=== PATIENT | male | born 1960 | race Caucasian/White ===

== ENCOUNTER 2016-07-02 16:28 | Emergency (ER) | payer OTHER ==
--- NOTE | ~2016-07-02 | CR181 ---
[facility] A Service of [facility] & [facility] RADIOLOGY TEXT RESULTS PATIENT: JUAN CARLOS ABRAHAM LOCATION: [place] : 60 UNIT #: [id number] AGE: [address]: AUSTIN DELVALLE SEX: M ORDER DR: [id number] [facility] [address] [address] [id number] E MR#: [id number] Acc #: [id number] NAME: JUAN CARLOS ABRAHAM : 1960 SEX: M STUDY DATE/TIME: 07/02/2016 16:06 UNIT: [facility] ROOM: STUDY DESCRIPTION: CR Lumbar Spine 2 or 3 Views Attending Physician: Austin Delvalle Aprn Ordering Physician: Ed Stanley Garduno M.D. Primary Care Physician: Primary Care Physician No MEDICAL IMAGING REPORT This report is preliminary unless electronic signature is present EXAM Lumbar spine series 3 views, 07/02/2016 COMPARISON Prior study dated 07/29/2008 CLINICAL HISTORY Pain after fall 07/02. FINDINGS Normal alignment. Mild discogenic change but no fracture or acute abnormality. No change since 07/29/2008. Dictated by... Jaden Lacy M.D. THIS IS AN ELECTRONICALLY VERIFIED REPORT Jaden Lacy M.D. at 07/05/2016 3:48 PM TEV/sancho TD: 07/03/2016 01:20 JOB #: [id number] MEDICAL IMAGING REPORT COPY
--- NOTE | ~2016-07-02 | CT71 ---
[facility] A Service [facility] RADIOLOGY TEXT RESULTS PATIENT: JUAN CARLOS ABRAHAM LOCATION: [facility] : 60 UNIT #: [id number] AGE: [address]: AUSTIN DELVALLE SEX: M ORDER DR: [id number] [facility] [address] [place], [place] [address] [id number] E MR#: [id number] Acc #: [id number] NAME: JUAN CARLOS ABRAHAM : 1960 SEX: M STUDY DATE/TIME: 07/02/2016 15:43 UNIT: [facility] ROOM: STUDY DESCRIPTION: CT Head Wo Contrast Attending Physician: Austin Delvalle Aprn Ordering Physician: Steffanie Sierra M.D. Primary Care Physician: No Primary Care Physician MEDICAL IMAGING REPORT This report is preliminary unless electronic signature is present EXAM CT head without contrast, 07/02/2016 HISTORY Dizziness and headache and pain after fall last night. TECHNIQUE Axial noncontrast images were obtained from the skull base to the vertex. This CT exam was performed with one or more of the following radiation dose reduction techniques: Automatic exposure control, adjustment of mA and/or kV according to patient size, and iterative reconstruction. FINDINGS Ventricular size and configuration are normal. There is no evidence of acute infarct or hemorrhage. There are no extraaxial fluid collections. No mass lesion or mass effect is seen. There are no skull fractures. IMPRESSION Normal noncontrast head CT. Dictated by... Jaden Lacy M.D. THIS IS AN ELECTRONICALLY VERIFIED REPORT Jaden Lacy M.D. at 07/05/2016 3:47 PM TEV/psc TD: 07/02/2016 23:23 JOB #: [id number] MEDICAL IMAGING REPORT [facility] A Service [facility] RADIOLOGY TEXT RESULTS PATIENT: JUAN CARLOS ABRAHAM LOCATION: [facility] : 60 UNIT #: [id number] AGE: [address]: AUSTIN DELVALLE SEX: M ORDER DR: COPY
--- NOTE | ~2016-07-02 | CR229 ---
[facility] A Service of [facility] & [facility] RADIOLOGY TEXT RESULTS PATIENT: JUAN CARLOS ABRAHAM LOCATION: [facility] : 60 UNIT #: [id number] AGE: [address]: AUSTIN DELVALLE SEX: M ORDER DR: [id number] [facility] [address] [place], [place] [address] [id number] E MR#: [id number] Acc #: [id number] NAME: JUAN CARLOS ABRAHAM : 1960 SEX: M STUDY DATE/TIME: 07/02/2016 16:05 UNIT: [facility] ROOM: STUDY DESCRIPTION: CR Shoulder Min 2 View Lt Attending Physician: Austin Delvalle Aprn Ordering Physician: Ed Stanley Garduno M.D. Primary Care Physician: Primary Care Physician No MEDICAL IMAGING REPORT This report is preliminary unless electronic signature is present EXAM Left shoulder 3 views, 07/02/2016 HISTORY Left arm pain and numbness after fall today. FINDINGS There is some degenerative change at the greater tuberosity, but the exam is otherwise unremarkable. There is no fracture or dislocation. Dictated by... Jaden Lacy M.D. THIS IS AN ELECTRONICALLY VERIFIED REPORT Jaden Lacy M.D. at 07/05/2016 3:48 PM TEV/sancho TD: 07/03/2016 00:56 JOB #: [id number] MEDICAL IMAGING REPORT COPY
[2016-07-02 15:33] LABS: URINE SOURCE CLEAN CATCH
[2016-07-02 15:42] LABS: URINE APPEARANCE CLEAR; URINE BILIRUBIN NEG (NEG); URINE BLOOD NEG (NEG); URINE COLOR YELLOW; URINE GLUCOSE NEG (NEG); URINE KETONE NEG (NEG); URINE LEUKOCYTE ESTERASE NEG (NEG); URINE NITRATE NEG (NEG); URINE PH 7.5 (5-8); URINE PROTEIN TRACE (NEG); URINE SPECIFIC GRAVITY 1.014 (1.003-1.035); URINE UROBILINOGEN 0.2 MG/DL (NEG)
[2016-07-02 15:48] LABS: CULTURE INDICATED? NO
[~2016-07-02 16:28] MED LIST: VICODIN 5/500 T1 TAB PO
== END 2016-07-02 16:59 | disposition home or self-care (01) ==
LOC: CFTX 16:28
PROVIDERS: Nurse Practitioner Family
DX: S46.912A Strain of unspecified muscle, fascia and tendon at shoulder and upper arm level, left arm, initial encounter (principal); S39.012A Strain of muscle, fascia and tendon of lower back, initial encounter; I10 Essential (primary) hypertension; F17.210 Nicotine dependence, cigarettes, uncomplicated; Z88.5 Allergy status to narcotic agent; W22.8XXA Striking against or struck by other objects, initial encounter; Y92.89 Other specified places as the place of occurrence of the external cause
CPT/HCPCS: 70450; 72100; 73030; 81003; 96372; 99284; J1885

== ENCOUNTER 2016-07-17 18:46 | Emergency (ER) | payer OTHER ==
--- NOTE | ~2016-07-17 | CT4 ---
[facility] A Service of [facility] RADIOLOGY TEXT RESULTS PATIENT: JUAN CARLOS ABRAHAM LOCATION: [facility] : 60 UNIT #: [id number] AGE: [address]: Barber Weston MD SEX: M ORDER DR: [id number] [facility] [address] [place], [place] [address] [id number] E MR#: [id number] Acc #: [id number] NAME: JUAN CARLOS ABRAHAM : 1960 SEX: M STUDY DATE/TIME: 07/17/2016 19:20 UNIT: [facility] ROOM: STUDY DESCRIPTION: CT Abd and Pelv Wo Cont Attending Physician: Barber Weston M.D. Ordering Physician: Barber Weston M.D. Primary Care Physician: Primary Care Physician No MEDICAL IMAGING REPORT This report is preliminary unless electronic signature is present EXAM CT abdomen and pelvis without contrast HISTORY Hematuria and low back pain and dysuria for [address] abdomen and pelvis was performed without contrast. This CT exam was performed with one or more of the following radiation dose reduction techniques: Automatic exposure control, adjustment of mA and/or kV according to patient size, and iterative reconstruction. CT ABDOMEN: 2 mm nonobstructing stone in the upper pole of the left kidney. No additional renal calculi. No hydronephrosis. Multiple probable small bilateral renal cortical cysts, similar to prior CTs. The liver, gallbladder, spleen, pancreas, and adrenal glands are normal. Normal caliber abdominal aorta. CT PELVIS: Normal appendix. No bowel dilatation. No ascites or inflammatory stranding. The urinary bladder and prostate gland are unremarkable. IMPRESSION 1. No acute findings in the abdomen or pelvis. 2. No urinary obstruction. 3. 2 mm nonobstructing stone in the upper pole of the left kidney. 4. Normal appendix. 5. Probable multiple small bilateral renal cortical cysts are similar to prior CTs. Dictated by... Duran Calle M.D. [facility] A Service of [facility] RADIOLOGY TEXT RESULTS PATIENT: JUAN CARLOS ABRAHAM LOCATION: [facility] : 60 UNIT #: [id number] AGE: [address]: Barber Weston MD SEX: M ORDER DR: THIS IS AN ELECTRONICALLY VERIFIED REPORT Duran Calle M.D. at 07/18/2016 2:41 PM DFL/psc TD: 07/18/2016 01:55 JOB #: [id number] MEDICAL IMAGING REPORT Page 1 of 1 COPY
[2016-07-17 17:38] LABS: URINE SOURCE CLEAN CATCH
[2016-07-17 18:00] LABS: BASOPHIL# 0.1 X10e3 (0-0.3); BASOPHIL% 0.7 % (0-2.5); EOSINOPHIL# 0.2 X10e3 (0-0.7); EOSINOPHIL% 1.9 % (0.0-7.0); HEMATOCRIT 47.1 % (38.0-50.0); HEMOGLOBIN 15.5 gm/dL (13.0-16.0); LYMPHOCYTE# 2.7 X10e3 (1.0-3.5); LYMPHOCYTE% 24.1 % (17.0-45.0); MEAN CELL VOLUME 86.1 FL (83-96); MEAN CORPUSCULAR HEMOGLOBIN 28.3 PG (28-34); MEAN CORPUSCULAR HGB CONC 32.9 g/dL (30-36); MEAN PLATELET VOLUME 10.8 FL (6.5-11.5); MONOCYTE# 0.7 X10e3 (0-1.0); MONOCYTE% 6.2 % (3.0-12.0); NEUTROPHIL# 7.5 X10e3 (1.5-7.1); NEUTROPHIL% 67.1 % (40-75); PLATELET COUNT 238 X10e3 (140-420); RED BLOOD COUNT 5.47 X10e (3.90-5.60); RED CELL DISTRIBUTION WIDTH 14.1 % (11.0-15.5); WHITE BLOOD COUNT 11.2 X10e3 (4.0-10.5)
[2016-07-17 18:04] LABS: DIFF IND NO
[2016-07-17 18:24] LABS: ALKALINE PHOSPHATASE 71 U/L (32-92); ALT (SGPT) 13 U/L (10-40); AST (SGOT) 23 U/L (10-42); BILIRUBIN,TOTAL <0.1 mg/dL (0.2-2.0); BLOOD UREA NITROGEN 16 mg/dL (9-23); BUN/CREATININE RATIO 13.33; CALCIUM SERUM 9.2 mg/dL (8.4-10.2); CARBON DIOXIDE 24 mmol/L (22-31); CHLORIDE 109 mmol/L (100-111); CREATININE SERUM 1.2 mg/dL (0.6-1.4); GLOM FILT RATE Estimated 67.7 mL/min (>60); GLUCOSE FASTING 107 mg/dL (70-110); POTASSIUM 3.6 mmol/L (3.5-5.1); PROTEIN TOTAL SERUM 7.6 g/dL (6.0-8.3); SODIUM 142 mmol/L (135-145)
[2016-07-17 18:33] LABS: URINE APPEARANCE CLEAR; URINE BILIRUBIN NEG (NEG); URINE BLOOD NEG (NEG); URINE COLOR YELLOW; URINE GLUCOSE NEG (NEG); URINE KETONE NEG (NEG); URINE LEUKOCYTE ESTERASE NEG (NEG); URINE NITRATE NEG (NEG); URINE PH 6.5 (5-8); URINE PROTEIN 1+ (NEG); URINE SPECIFIC GRAVITY 1.019 (1.003-1.035); URINE UROBILINOGEN 0.2 MG/DL (NEG)
[2016-07-17 18:37] LABS: CULTURE INDICATED? YES; U HYALINE CASTS AUWI 0-2 /[LPF]; URINE BACTERIA AUWI NEG (NEGATIVE); URINE SQUAMOUS EPITHELIAL CELL OCC /[HPF]
== END 2016-07-17 20:35 | disposition home or self-care (01) ==
LOC: CED 18:46
DX: M54.5 Low back pain (principal); I10 Essential (primary) hypertension; G89.29 Other chronic pain; Z88.8 Allergy status to other drugs, medicaments and biological substances
CPT/HCPCS: 36415; 74176; 80053; 81003; 85025; 87086; 96372; 99284; J1885

== ENCOUNTER 2016-12-04 11:41 | Emergency (ER) | payer OTHER ==
[~2016-12-04] VITALS: Ht 180.3 cm; Wt 88.5 kg
--- NOTE | ~2016-12-04 | EKG ---
PATIENT: JUAN CARLOS ABRAHAM UNIT #: [id number] Ventricular Rate: 62 BPM Atrial Rate: 62 BPM P-R Interval: 160 ms QRS Duration: 110 ms Q-T Interval: 498 ms QTC Calculation(Bezet): 505 ms P [place]: 36 degrees Calculated R [place]: -53 degrees Calculated T [place]: -34 degrees Diagnosis Line: Sinus rhythm with frequent Premature ventricular Diagnosis Line: complexes in a pattern of bigeminy Diagnosis Line: Left anterior fascicular block Diagnosis Line: Minimal voltage criteria for LVH, may be normal Diagnosis Line: variant Diagnosis Line: Non-specific intra-ventricular conduction delay Diagnosis Line: T wave abnormality, consider anterolateral Diagnosis Line: ischemia Diagnosis Line: Prolonged QT Diagnosis Line: Abnormal ECG Diagnosis Line: No previous ECGs available Diagnosis Line: Confirmed by REGINALD SALEEM MD ([id number]) on Diagnosis Line: 12/04/2016 3:34:00 PM INTERPRETING MD: ALEJO
--- NOTE | ~2016-12-04 | CT52 ---
[facility] A Service of [facility] RADIOLOGY TEXT RESULTS PATIENT: JUAN CARLOS ABRAHAM LOCATION: [facility] : 60 UNIT #: [id number] AGE: [address]: Kemar Guy MD SEX: M ORDER DR: [id number] [address] [address] [id number] E MR#: [id number] Acc #: [id number] NAME: JUAN CARLOS ABRAHAM : 1960 SEX: M STUDY DATE/TIME: 12/04/2016 13:43 UNIT: [facility] ROOM: STUDY DESCRIPTION: CT Cervical Spine Wo Cont Attending Physician: Kemar Guy M.D. Ordering Physician: Kemar Guy M.D. Primary Care Physician: No Primary Care Physician MEDICAL IMAGING REPORT This report is preliminary unless electronic signature is present EXAM Cervical spine CT, no contrast, 12/04/2016. PROCEDURE Axial unenhanced cervical spine CT with multiplanar reformats. This CT exam was performed with one or more of the following radiation dose reduction techniques: automatic exposure control, adjustment of mA and/or kV according to patient size, and iterative reconstruction. COMPARISON None. HISTORY Head and neck pain since fall last night. FINDINGS There is a loss of lordosis, but alignment is, otherwise, normal. There is some discogenic and facet arthropathy but no fracture or bone erosion or destruction is seen. IMPRESSION There is some cervical degenerative changes but there is no fracture or other acute abnormality. Dictated by... Jaden Lacy M.D. THIS IS AN ELECTRONICALLY VERIFIED REPORT Jaden Lacy M.D. at 12/07/2016 4:51 PM TEV/jt [facility] A Service [facility] RADIOLOGY TEXT RESULTS PATIENT: JUAN CARLOS ABRAHAM LOCATION: [facility] : 60 UNIT #: [id number] AGE: [address]: Kemar Guy MD SEX: M ORDER DR: TD: 12/04/2016 17:57 JOB #: [id number] MEDICAL IMAGING REPORT Page 1 of 1 COPY
--- NOTE | ~2016-12-04 | CT71 ---
[facility] A Service of [facility] RADIOLOGY TEXT RESULTS PATIENT: JUAN CARLOS ABRAHAM LOCATION: [facility] : 60 UNIT #: [id number] AGE: [address]: Kemar Guy MD SEX: M ORDER DR: [id number] [facility] [address] [place], [place] [address] [id number] E MR#: [id number] Acc #: [id number] NAME: JUAN CARLOS ABRAHAM : 1960 SEX: M STUDY DATE/TIME: 12/04/2016 13:41 UNIT: [facility] ROOM: STUDY DESCRIPTION: CT Head Wo Contrast Attending Physician: Kemar Guy M.D. Ordering Physician: Kemar Guy M.D. Primary Care Physician: No Primary Care Physician MEDICAL IMAGING REPORT This report is preliminary unless electronic signature is present EXAM Head CT without contrast. HISTORY Patient fell last night. Head injury. Headache. TECHNIQUE Axial images were obtained without contrast. This CT exam was performed with one or more of the following radiation dose reduction techniques: automatic exposure control, adjustment of mA and/or kV according to patient size, and iterative reconstruction. FINDINGS Axial noncontrast images were obtained from the skull base to the vertex. Ventricular size and configuration are normal. There is no evidence of acute infarct or hemorrhage. There are no extra-axial fluid collections. No mass lesion or mass effect is seen. There are no skull fractures. IMPRESSION Normal noncontrast head CT. Dictated by... Xander Jiménez M.D. THIS IS AN ELECTRONICALLY VERIFIED REPORT Xander Jiménez M.D. at 12/06/2016 7:02 AM STAR/michelle TD: 12/04/2016 17:40 JOB #: [id number] [facility] A Service [facility] RADIOLOGY TEXT RESULTS PATIENT: JUAN CARLOS ABRAHAM LOCATION: [facility] : 60 UNIT #: [id number] AGE: [address]: Kemar Guy MD SEX: M ORDER DR: MEDICAL IMAGING REPORT Page 1 of 1 COPY
--- NOTE | ~2016-12-04 | CR230 ---
[facility] A Service of [facility] RADIOLOGY TEXT RESULTS PATIENT: JUAN CARLOS ABRAHAM LOCATION: [facility] : 60 UNIT #: [id number] AGE: [address]: Kemar Guy MD SEX: M ORDER DR: [id number] [facility] [address] [place], [place] [address] [id number] E MR#: [id number] Acc #: [id number] NAME: JUAN CARLOS ABRAHAM : 1960 SEX: M STUDY DATE/TIME: 12/04/2016 13:08 UNIT: [facility] ROOM: STUDY DESCRIPTION: CR Shoulder Min 2 View Rt Attending Physician: Kemar Guy M.D. Ordering Physician: Kemar Guy M.D. Primary Care Physician: Primary Care Physician No MEDICAL IMAGING REPORT This report is preliminary unless electronic signature is present EXAM Right shoulder series 12/04/2016 HISTORY Trauma. Last night. Pain with decreased range of motion. Fell last night. FINDINGS AP internal external rotation views of the shoulder presented with transscapular view. No traumatic fracture or malalignment. Acromioclavicular and glenohumeral joint relationships are normal. There are mild degenerative changes in these joints. Periarticular soft tissues unremarkable. The visualized ribs are intact. Pulmonary parenchyma shows mild linear interstitial prominence and mildly prominent peribronchial markings. Study was not tailored for assessment of the lungs. The appearance could in part be a reflection of low lung volumes. Possibility of interstitial pneumonitis, interstitial edema and bronchitis could be considered in the appropriate clinical context. There is a rounded metallic density superimposed over the right infraclavicular soft tissues unchanged from prior chest radiographs in October 2016 and favored to reflect remote penetrating trauma. Dictated by... Doyle Jennings M.D. THIS IS AN ELECTRONICALLY VERIFIED REPORT Doyle Jennings M.D. at 12/06/2016 2:47 PM YARELY/prema TD: 12/04/2016 17:13 JOB #: [id number] [facility] A Service of [facility] RADIOLOGY TEXT RESULTS PATIENT: JUAN CARLOS ABRAHAM LOCATION: [facility] #: [id number] : 60 UNIT #: [id number] AGE: [address]: Kemar Guy MD SEX: M ORDER DR: MEDICAL IMAGING REPORT Page 1 of 1 COPY
[2016-12-04 13:10] LABS: BASOPHIL# 0.1 X10e3 (0-0.3); EOSINOPHIL# 0.2 X10e3 (0-0.7); HEMOGLOBIN 16.2 gm/dL (13.0-16.0); LYMPHOCYTE# 1.9 X10e3 (1.0-3.5); LYMPHOCYTE% 21.3 % (17.0-45.0); MEAN CORPUSCULAR HEMOGLOBIN 29.7 PG (28-34); MEAN CORPUSCULAR HGB CONC 34.5 g/dL (30-36); MEAN PLATELET VOLUME 9.8 FL (6.5-11.5); MONOCYTE# 0.6 X10e3 (0-1.0); MONOCYTE% 6.9 % (3.0-12.0); NEUTROPHIL% 68.8 % (40-75); PLATELET COUNT 223 X10e3 (140-420); RED BLOOD COUNT 5.46 X10e (3.90-5.60); RED CELL DISTRIBUTION WIDTH 13.9 % (11.0-15.5); WHITE BLOOD COUNT 8.7 X10e3 (4.0-10.5)
[2016-12-04 13:12] LABS: DIFF IND NO
[2016-12-04 13:35] LABS: ALBUMIN SERUM 4.1 g/dL (3.5-5.0); BILIRUBIN,TOTAL 0.5 mg/dL (0.2-2.0); BUN/CREATININE RATIO 10.83; CALCIUM SERUM 9.3 mg/dL (8.4-10.2); CREATININE SERUM 1.2 mg/dL (0.6-1.4); GLOM FILT RATE Estimated 67.2 mL/min (>60); POTASSIUM 3.7 mmol/L (3.5-5.1); PROTEIN TOTAL SERUM 7.8 g/dL (6.0-8.3)
== END 2016-12-04 14:59 | disposition home or self-care (01) ==
LOC: CFTX 11:41 → CED 11:41
PROVIDERS: Emergency Medicine
DX: S46.911A Strain of unspecified muscle, fascia and tendon at shoulder and upper arm level, right arm, initial encounter (principal); R55 Syncope and collapse; I10 Essential (primary) hypertension; Z87.442 Personal history of urinary calculi; F17.200 Nicotine dependence, unspecified, uncomplicated; Z88.5 Allergy status to narcotic agent; W18.30XA Fall on same level, unspecified, initial encounter; Y92.009 Unspecified place in unspecified non-institutional (private) residence as the place of occurrence of the external cause
CPT/HCPCS: 36415; 70450; 72125; 73030; 80053; 85025; 93005; 96374; 99284; J2270